=== PATIENT | male | born 1985 | race Caucasian/White ===

== ENCOUNTER 2024-01-08 11:55 | Emergency (ER) | payer OTHER ==
[2024-01-08 12:00] VITALS: TEMP 97.8
[2024-01-08] MEDS: SODIUM CHLORIDE 0.9% 1,000 ML IV STA (12:16)
[2024-01-08 12:22] LABS: Basophils % (A) 1 %; Eosinophils # (A) 0.1 k/uL (0-0.7); Eosinophils % (A) 1 %; HCT 43.7 % (39.0-53.0); HGB 14.8 gm/dL (13.0-17.5); Lymphocytes # (A) 1.6 k/uL (1.0-4.8); Lymphocytes % (A) 24 %; MCH 33.6 pg (25.0-35.0); MCHC 33.8 g/dL (31.0-37.0); MCV 99.2 fL (80.0-100.0); Mean Platelet Volume 8.2; Monocytes # (A) 0.5 k/uL (0-1.0); Monocytes % (A) 8 %; Neutrophils # (A) 4.3 k/uL (1.3-7.7); Neutrophils % (A) 65 %; Platelet Count 202 k/uL (150-450); RDW 14.1 % (11.5-15.5); WBC 6.7 k/uL (3.8-10.6)
[2024-01-08 12:28] LABS: INR 0.9 (<1.2)
[2024-01-08 12:45] LABS: ALT 122 U/L (4-49); AST 136 U/L (17-59); African American GFR (CKD) >90 (>60 ml/min/1.73 sqM); Alkaline Phosphatase 68 U/L (38-126); Anion Gap 9 mmol/L; Blood Urea Nitrogen 8 mg/dL (9-20); Calcium 8.6 mg/dL (8.4-10.2); Carbon Dioxide 28 mmol/L (22-30); Chloride 102 mmol/L (98-107); Glucose 129 mg/dL (74-99); Non-African American GFR(CKD) >90 (>60 ml/min/1.73 sqM); Sodium 139 mmol/L (137-145); Total Bilirubin 0.3 mg/dL (0.2-1.3); Total Protein 6.4 g/dL (6.3-8.2)
--- NOTE | 2024-01-08 12:48 | ED ---
Alcohol HPI - General Chief Complaint: Alcohol Stated Complaint: ETOH/detox Time Seen by Provider: 01/08/24 11:57 Source: patient, EMS, RN notes reviewed Mode of arrival: EMS Limitations: no limitations, altered mental status - History of Present Illness Initial Comments: This is a 38-year-old male who presents to the emergency department for alcohol intoxication. Patient typically consumes a pint of alcohol daily. Most recently had a pint last night. He went to check into [facility] today, however they advised that he was too intoxicated and sent him to the emergency department instead. He has never been to [facility] before, but states that he has been to rehab before. Denies a history of alcohol withdrawal seizures. States that he does get shaky when going through withdrawals. Denies any current complaints and states that he otherwise feels fine. MD Complaint: alcohol intoxication - Related Data Allergies Allergy/AdvReac Type Severity Reaction Status Date / Time No Known Allergies Allergy Verified 01/08/24 11:59 Review of Systems ROS Statement: Those systems with pertinent positive or pertinent negative responses have been documented in the HPI. ROS Other: All systems not noted in ROS Statement are negative. Past Medical History Past Medical History: No Reported History Past Surgical History: No Surgical Hx Reported Smoking Status: Current every day smoker Past Alcohol Use History: Abuse, Daily Past Drug Use History: Marijuana General Exam Limitations: no limitations, altered mental status General appearance: alert, appears intoxicated Head exam: Present: atraumatic, normocephalic, normal inspection Eye exam: Present: normal appearance, PERRL, EOMI. Absent: scleral icterus, conjunctival injection, periorbital swelling Respiratory exam: Present: normal lung sounds bilaterally. Absent: respiratory distress, wheezes, rales, rhonchi, stridor Cardiovascular Exam: Present: regular rate, normal rhythm, normal heart sounds. Absent: systolic murmur, diastolic murmur, rubs, gallop, clicks Neurological exam: Present: alert, oriented X3, CN II-XII intact Psychiatric exam: Present: normal affect, normal mood Skin exam: Present: warm, dry, intact, normal color. Absent: rash Course Vital Signs 01/08/24 01/08/24 11:56 14:50 Temperature 97.8 F Pulse Rate 86 84 Respiratory 18 20 Rate Blood Pressure 128/70 126/71 O2 Sat by Pulse 95 97 Oximetry Medical Decision Making - Medical Decision Making This is a 38-year-old male who presents emergency department for alcohol int oxication. Was pt. sent in by a medical professional or institution? @ -No Did you speak to anyone other than the patient for history? @ -No Did you review nursing and triage notes? @ -Yes, and I agree, it is accurate with regards to the patient's symptoms. Were old charts reviewed? @ -No Differential Diagnosis? @ -Sympathomimetic syndrome, anti-muscarinic syndrome, serotonin syndrome, neuroleptic malignant syndrome, thyrotoxicosis, encephalitis, acute psychosis, hypoglycemia, trauma, sepsis. This is not meant to be an all-inclusive list. EKG interpreted by me (3pts min.)? @ -Not obtained X-rays interpreted by me (1pt min.)? @ -Not obtained CT interpreted by me (1pt min.)? @ -Not obtained U/S interpreted by me (1pt. min.)? @ -Not obtained What testing was considered but not performed? (CT, X-rays, U/S, labs)? Why? @ -None What meds were considered but not given? Why? @ -None Did you discuss the management of the patient with other professionals? @ -No Did you reconcile home meds? @ -No Was smoking cessation discussed for >3mins.? @ -No Was critical care preformed (if so, how long)? @ -No Were there social determinants of health that impacted care today? How? (Homelessness, low income, unemployed, alcoholism, drug addiction, transportation, low edu. Level, literacy, decrease access to med. care, halfway, rehab)? @ -Alcoholism, leading to his visit today. Was there de-escalation of care discussed even if they declined? (Discuss DNR or withdrawal of care, Hospice)? @ -No What co-morbidities impacted this encounter? (DM, HTN, Smoking, COPD, CAD, Cancer, CVA, Hep., AIDS, mental health diagnosis, sleep apnea, morbid obesity)? @ -Alcoholism Was patient admitted / discharged? @ -Discharged. Lab work demonstrates hypokalemia with a potassium of 3.0. Alcohol level elevated at 233. 40 mEq of K-Dur administered along with a liter bolus of IV fluids. Patient was clinically sober despite the alcohol level. He was walking, eating, and ambulating without difficulty. [facility] was contacted and advised that they will take him back at this current level because he is clinically sober. Patient discharged back to [facility] in stable condition. Case discussed with ED attending Dr. Parr. Return precautions reviewed in depth, the patient is instructed to return to the emergency department with any new, worsening, or concerning symptoms. Patient verbalized understanding. Undiagnosed new problem with uncertain prognosis? @ -None Drug Therapy requiring intensive monitoring for toxicity (Heparin, Nitro, Insulin, Cardizem)? @ -None Were any procedures done? @ -None Diagnosis/symptom? @ -Alcohol intoxication, hypokalemia Acute, or Chronic, or Acute on Chronic? @ -Acute Uncomplicated (without systemic symptoms) or Complicated (systemic symptoms)? @ -Uncomplicated Side effects of treatment? @ -None Exacerbation, Progression, or Severe Exacerbation] @ -Not applicable Poses a threat to life or bodily function? @ -Not currently - Lab Data Result diagrams: 01/08/24 12:14 01/08/24 12:14 Lab Results 01/08/24 01/08/24 01/08/24 Range/Units 12:14 12:14 12:14 WBC 6.7 (3.8-10.6) k/uL RBC 4.40 (4.30-5.90) m/uL Hgb 14.8 (13.0-17.5) gm/dL Hct 43.7 (39.0-53.0) % MCV 99.2 (80.0-100.0) fL MCH 33.6 (25.0-35.0) pg MCHC 33.8 (31.0-37.0) g/dL RDW 14.1 (11.5-15.5) % Plt Count 202 (150-450) k/uL MPV 8.2 Neutrophils % 65 % Lymphocytes % 24 % Monocytes % 8 % Eosinophils % 1 % Basophils % 1 % Neutrophils # 4.3 (1.3-7.7) k/uL Lymphocytes # 1.6 (1.0-4.8) k/uL Monocytes # 0.5 (0-1.0) k/uL Eosinophils # 0.1 (0-0.7) k/uL Basophils # 0.0 (0-0.2) k/uL PT 10.0 (10.0-12.5) sec INR 0.9 (<1.2) APTT 23.0 (22.0-30.0) sec Sodium 139 (137-145) mmol/L Potassium 3.0 L (3.5-5.1) mmol/L Chloride 102 (98-107) mmol/L Carbon Dioxide 28 (22-30) mmol/L Anion Gap 9 mmol/L BUN 8 L (9-20) mg/dL Creatinine 0.73 (0.66-1.25) mg/dL Est GFR (CKD-EPI)AfAm >90 (>60 ml/min/1.73 sqM) Est GFR (CKD-EPI)NonAf >90 (>60 ml/min/1.73 sqM) Glucose 129 H (74-99) mg/dL Calcium 8.6 (8.4-10.2) mg/dL Total Bilirubin 0.3 (0.2-1.3) mg/dL AST 136 H (17-59) U/L ALT 122 H (4-49) U/L Alkaline Phosphatase 68 (38-126) U/L Total Protein 6.4 (6.3-8.2) g/dL Albumin 4.0 (3.5-5.0) g/dL Serum Alcohol 233 H* mg/dL Disposition Clinical Impression: Alcoholic intoxication, Hypokalemia Disposition: HOME SELF-CARE Instructions (If sedation given, give patient instructions): Alcohol Intoxication (ED) Additional Instructions: Return to the emergency department with any new, worsening, or concerning sympto ms. Follow up with your primary care provider in 1-2 days. Is patient prescribed a controlled substance at d/c from ED?: No Referrals: None,Stated [Primary Care Provider] - 1-2 days Time of Disposition: 14:15
[2024-01-08 13:02] LABS: Alcohol 233 mg/dL
[2024-01-08] MEDS: POTASSIUM CHLORIDE ER 20 MEQ TAB.ER PO STA (13:45)
[2024-01-08 14:51] VITALS: BP 126/71; PULSE 84; RESP 20
== END 2024-01-08 15:02 | disposition home or self-care (01) ==
LOC: EC 11:55
DX: F10.129 Alcohol abuse with intoxication, unspecified (principal); E87.6 Hypokalemia; F17.200 Nicotine dependence, unspecified, uncomplicated; Y90.7 Blood alcohol level of 200-239 mg/100 ml
CPT/HCPCS: 36415; 80053; 85025; 85610; 85730; 99284; 96360; G0480; 80320

== ENCOUNTER 2024-01-10 19:12 | Observation (INO) | payer OTHER ==
[2024-01-10] MEDS ORDERED: LORazepam 1 MG TAB PO PRN ×3 (19:42)
[2024-01-10] MEDS ORDERED: LORazepam 0.5 MG TAB PO PRN (19:42)
[2024-01-10] MEDS ORDERED: LORazepam 2 MG/ML INJ IV PRN ×3 (19:42)
--- NOTE | 2024-01-10 19:43 | ED ---
Alcohol HPI - General Chief Complaint: Alcohol Stated Complaint: ETOH Time Seen by Provider: 01/10/24 19:15 Source: patient, EMS, RN notes reviewed, old records reviewed Mode of arrival: EMS Limitations: no limitations, altered mental status - History of Present Illness Initial Comments: This is a 38-year-old male to the ER for evaluation. Patient from [facility] for evaluation guarding possible DTs and intoxication. Patient has history of significant alcoholism MD Complaint: alcohol intoxication, alcohol withdrawal, alcohol dependence, desires rehab, medical clearance for detox facility Last Drink: unknown -: minute(s) Previous Visits for Alcohol Intoxication?: Yes Recent Trauma: Yes Associated Symptoms: denies other symptoms Treatments Prior to Arrival: none Chronic Alcohol Use: Yes - Related Data Home Medications Medication Instructions Recorded Confirmed Acetaminophen [Tylenol] 650 mg PO Q4H PRN MDD 2,600mg 01/10/24 01/10/24 Benzocaine 20 % Gel [Orajel] 1 applic MM DAILY PRN 01/10/24 01/10/24 Calcium Phos/D3/Magnesium/Zinc 1 tab PO TID PRN 01/10/24 01/10/24 [Hsrwxlb-Syq-Ctdq-Vitamin D3] Chlorpheniramine Maleate 4 mg PO Q4H PRN 01/10/24 01/10/24 [Chlor-Trimeton] Hyoscyamine Sulfate [Levsin] 0.125 mg PO QID PRN 01/10/24 01/10/24 Ibuprofen [Motrin Ib] 600 mg PO Q6H PRN 01/10/24 01/10/24 LORazepam [Ativan] 1 - 2 mg PO Q4H 01/10/24 01/10/24 Loperamide HCl [Imodium A-D] 4 mg PO QID PRN MDD 16mg 01/10/24 01/10/24 Melatonin 10 mg PO HS 01/10/24 01/10/24 Multivitamins, Thera [Multivitamin 1 tab PO DAILY 01/10/24 01/10/24 (formulary)] Thiamine [Vitamin B-1] 100 mg PO DAILY 01/10/24 01/10/24 ondansetron HCL [Zofran] 8 mg PO Q6H PRN 01/10/24 01/10/24 Previous Rx's Medication Instructions Recorded amLODIPine [Norvasc] 5 mg PO BID #30 tab 01/12/24 Allergies Allergy/AdvReac Type Severity Reaction Status Date / Time Penicillins Allergy Rash/Hives Verified 01/10/24 20:10 Review of Systems ROS Statement: Those systems with pertinent positive or pertinent negative responses have been documented in the HPI. ROS Other: All systems not noted in ROS Statement are negative. Past Medical History Past Medical History: No Reported History History of Any Multi-Drug Resistant Organisms: None Reported Past Surgical History: No Surgical Hx Reported Past Psychological History: No Psychological Hx Reported Smoking Status: Current every day smoker Past Alcohol Use History: Abuse, Daily Past Drug Use History: Marijuana General Exam Limitations: no limitations General appearance: appears intoxicated, anxious Head exam: Present: atraumatic, normocephalic, normal inspection Eye exam: Present: normal appearance, PERRL, EOMI. Absent: scleral icterus, conjunctival injection, periorbital swelling ENT exam: Present: normal exam, mucous membranes moist Neck exam: Present: normal inspection. Absent: tenderness, meningismus, lymphadenopathy Respiratory exam: Present: normal lung sounds bilaterally. Absent: respiratory distress, wheezes, rales, rhonchi, stridor Cardiovascular Exam: Present: regular rate, normal rhythm, normal heart sounds. Absent: systolic murmur, diastolic murmur, rubs, gallop, clicks GI/Abdominal exam: Present: soft, normal bowel sounds. Absent: distended, tenderness, guarding, rebound, rigid Extremities exam: Present: normal inspection, full ROM, normal capillary refill. Absent: tenderness, pedal edema, joint swelling, calf tenderness Back exam: Present: normal inspection Neurological exam: Present: alert, oriented X3, CN II-XII intact Psychiatric exam: Present: normal affect, normal mood Skin exam: Present: warm, dry, intact, normal color. Absent: rash Course Vital Signs 01/10/24 01/10/24 19:14 20:23 Temperature 98.5 F Pulse Rate 67 48 L Respiratory 16 18 Rate Blood Pressure 140/97 136/89 O2 Sat by Pulse 97 97 Oximetry - Reevaluation(s) Reevaluation #1: 01/10/24 20:29 Medical records reviewed Reevaluation #2: 01/10/24 20:29 Patient showing mild improvement here in the ER Reevaluation #3: 01/10/24 20:29 Patient informed of results questions answered Reevaluation #4: Was pt. sent in by a medical professional or institution (SHIVA Dietz, INTERNATIONAL RECRUITER, urgent care, hospital, or prison...) When possible be specific @ -no Did you speak to anyone other than the patient for history (EMS, parent, family, police, friend...)? What history was obtained from this source @ -no Did you review nursing and triage notes (agree or disagree)? Why? @ -agree Are old charts reviewed (outside hosp., previous admission, EMS record, old EKG, old radiological studies, urgent care reports/EKG's, prison records)? Report findings @ -yes Differential Diagnosis (chest pain, altered mental status, abdominal pain women, abdominal pain men, vaginal bleeding, weakness, fever, dyspnea, syncope, headache, dizziness, GI bleed, back pain, seizure, CVA, palpatations, mental health, musculoskeletal)? @ -prior EKG interpreted by me (3pts min.). @ -no X-rays interpreted by me (1pt min.). @ -no CT interpreted by me (1pt min.). @ -no U/S interpreted by me (1pt. min.). @ -no What testing was considered but not performed or refused? (CT, X-rays, U/S, labs)? Why? @ -none What meds were considered but not given or refused? Why? @ -none Did you discuss the management of the patient with other professionals (professionals i.e. SHIVA Dietz, INTERNATIONAL RECRUITER, lab, RT, psych nurse, social service assistant, mine car repairer, teacher, legal compliance officer, case supervisor)? Give summary @ -no Was smoking cessation discussed for >3mins.? @ -no Was critical care preformed (if so, how long)? @ -no Were there social determinants of health that impacted care today? How? (Homelessness, low income, unemployed, alcoholism, drug addiction, transportation, low edu. Level, literacy, decrease access to med. care, long term, rehab)? @ -none Was there de-escalation of care discussed even if they declined (Discuss DNR or withdrawal of care, Hospice)? DNR status @ -no What co-morbidities impacted this encounter? (DM, HTN, Smoking, COPD, CAD, Cancer, CVA, ARF, Chemo, Hep., AIDS, mental health diagnosis, sleep apnea, morbid obesity)? @ -none Was patient admitted / discharged? Hospital course, mention meds given and route, prescriptions, significant lab abnormalities, going to OR and other pertinent info. @ - 38 male for alcohol alcohol withdrawal alcohol impending DTs. Patient admitted for observation Admitted Undiagnosed new problem with uncertain prognosis? @ -no Drug Therapy requiring intensive monitoring for toxicity (Heparin, Nitro, Insulin, Cardizem)? @ -no Were any procedures done? @ -no Diagnosis/symptom? @ -Alcohol intoxication DTs Acute, or Chronic, or Acute on Chronic? @ -Acute Uncomplicated (without systemic symptoms) or Complicated (systemic symptoms)? @ -Complicated Side effects of treatment? @ -no Exacerbation, Progression, or Severe Exacerbation? @ -exacerbation Poses a threat to life or bodily function? How? (Chest pain, [place], [place], pneumonia, PE, COPD, DKA, ARF, appy, cholecystitis, CVA, Diverticulitis, Homicidal, Suicidal, threat to staff... and all critical care pts) @ -yes significant withdrawal 01/16/24 21:18 Reevaluation #5: Differential Altered Mental Status: Hypoglycemia, DKA, hypercapnia, ETOH, overdose, CO poisoning, trauma, myxedema coma, HTN encephalopathy, infection, encephalitis, psychosis, intercranial hemorrhage, hepatic encephalopathy, meningitis, CVA, this is not meant to be an all-inclusive list - Consultations Consultation #1: Spoke with [facility] who agrees to admit the patient Medical Decision Making - Medical Decision Making 38 male for alcohol alcohol withdrawal alcohol impending DTs. Patient admitted for observation - Lab Data Result diagrams: 01/12/24 02:59 01/12/24 02:59 Lab Results 01/10/24 01/10/24 Range/Units 19:42 19:42 WBC 6.5 (3.8-10.6) k/uL RBC 4.62 (4.30-5.90) m/uL Hgb 15.7 (13.0-17.5) gm/dL Hct 46.7 (39.0-53.0) % MCV 101.1 H (80.0-100.0) fL MCH 33.9 (25.0-35.0) pg MCHC 33.6 (31.0-37.0) g/dL RDW 13.2 (11.5-15.5) % Plt Count 228 (150-450) k/uL MPV 8.0 Neutrophils % 64 % Lymphocytes % 23 % Monocytes % 9 % Eosinophils % 2 % Basophils % 1 % Neutrophils # 4.2 (1.3-7.7) k/uL Lymphocytes # 1.5 (1.0-4.8) k/uL Monocytes # 0.6 (0-1.0) k/uL Eosinophils # 0.1 (0-0.7) k/uL Basophils # 0.0 (0-0.2) k/uL Macrocytosis Slight Sodium 136 L (137-145) mmol/L Potassium 3.9 (3.5-5.1) mmol/L Chloride 105 (98-107) mmol/L Carbon Dioxide 26 (22-30) mmol/L Anion Gap 5 mmol/L BUN 3 L (9-20) mg/dL Creatinine 0.69 (0.66-1.25) mg/dL Est GFR (CKD-EPI)AfAm >90 (>60 ml/min/1.73 sqM) Est GFR (CKD-EPI)NonAf >90 (>60 ml/min/1.73 sqM) Glucose 82 (74-99) mg/dL Calcium 9.5 (8.4-10.2) mg/dL Phosphorus 3.5 (2.4-5.1) Magnesium 2.2 (1.6-2.3) mg/dL Total Bilirubin 1.0 (0.2-1.3) mg/dL AST 65 H (17-59) U/L ALT 91 H (4-49) U/L Alkaline Phosphatase 68 (38-126) U/L Total Protein 6.8 (6.3-8.2) g/dL Albumin 4.3 (3.5-5.0) g/dL Lipase 182 (23-300) U/L Serum Alcohol <10 mg/dL Disposition Clinical Impression: Alcoholic intoxication, Alcohol withdrawal delirium, Alcohol withdrawal syndrome Disposition: ADMITTED IP TO THIS HOSP Condition: Fair Is patient prescribed a controlled substance at d/c from ED?: No Time of Disposition: 20:30
[2024-01-10] MEDS: SODIUM CHLORIDE 0.9% 1,000 ML IV STA (19:48)
[2024-01-10] MEDS: LORazepam 2 MG/ML INJ IV STA (19:51)
[2024-01-10 20:12] LABS: Basophils % (A) 1 %; Eosinophils # (A) 0.1 k/uL (0-0.7); Eosinophils % (A) 2 %; HCT 46.7 % (39.0-53.0); HGB 15.7 gm/dL (13.0-17.5); Lymphocytes # (A) 1.5 k/uL (1.0-4.8); Lymphocytes % (A) 23 %; MCH 33.9 pg (25.0-35.0); MCHC 33.6 g/dL (31.0-37.0); MCV 101.1 fL (80.0-100.0); Macrocytosis Slight; Monocytes # (A) 0.6 k/uL (0-1.0); Monocytes % (A) 9 %; Neutrophils # (A) 4.2 k/uL (1.3-7.7); Neutrophils % (A) 64 %; Platelet Count 228 k/uL (150-450); RBC 4.62 m/uL (4.30-5.90); RDW 13.2 % (11.5-15.5); WBC 6.5 k/uL (3.8-10.6)
[2024-01-10 20:26] LABS: ALT 91 U/L (4-49); AST 65 U/L (17-59); African American GFR (CKD) >90 (>60 ml/min/1.73 sqM); Albumin 4.3 g/dL (3.5-5.0); Alcohol <10 mg/dL; Alkaline Phosphatase 68 U/L (38-126); Anion Gap 5 mmol/L; Blood Urea Nitrogen 3 mg/dL (9-20); Calcium 9.5 mg/dL (8.4-10.2); Carbon Dioxide 26 mmol/L (22-30); Chloride 105 mmol/L (98-107); Glucose 82 mg/dL (74-99); Lipase 182 U/L (23-300); Magnesium 2.2 mg/dL (1.6-2.3); Non-African American GFR(CKD) >90 (>60 ml/min/1.73 sqM); Potassium 3.9 mmol/L (3.5-5.1); Sodium 136 mmol/L (137-145); Total Protein 6.8 g/dL (6.3-8.2)
[2024-01-10] MEDS ORDERED: ONDANSETRON 4 MG/2 ML VIAL IVP PRN (20:27)
[2024-01-10] MEDS ORDERED: NALOXONE 0.4 MG/ML 1 ML VIAL IV PRN (20:27)
[2024-01-10] MEDS ORDERED: MORPHINE SULFATE 4 MG/ML SYRINGE IV PRN (20:27)
[2024-01-10] MEDS: SODIUM CHLORIDE 0.9% 1,000 ML IV SCH (21:39)
[2024-01-11] MEDS: PANTOPRAZOLE 40 MG/10 ML VIAL IV SCH (08:20)
[2024-01-11] MEDS: MULTIVITAMINS, THERA 1 EACH TAB PO SCH (08:20)
[2024-01-11] MEDS: FOLIC ACID 1 MG TAB PO SCH (08:20)
[2024-01-11 09:04] LABS: Basophils # (A) 0.08 X 10*3/uL (0.00-0.10); Basophils % (A) 1.3 %; Eosinophils % (A) 3.2 %; HCT 44.1 % (39.6-50.0); HGB 14.6 g/dL (13.0-17.0); Lymphocytes # (A) 1.74 X 10*3/uL (0.90-5.00); Lymphocytes % (A) 27.7 %; MCH 33.6 pg (27.0-32.0); MCHC 33.1 g/dL (32.0-37.0); MCV 101.4 FL (80.0-97.0); Mean Platelet Volume 11.1 FL (9.5-12.2); Monocytes # (A) 0.83 X 10*3/uL (0.20-1.00); Monocytes % (A) 13.2 %; NRBC Per 100 WBC 0 X 10*3/uL (0.00-0.01); Neutrophils # (A) 3.41 X 10*3/uL (1.80-7.70); Neutrophils % (A) 54.3 %; Platelet Count 201 X 10*3/uL (140-440); RBC 4.35 X 10*6/uL (4.40-5.60); RDW 13.4 % (11.5-14.5); WBC 6.28 X 10*3/uL (4.50-10.00)
[2024-01-11 09:20] LABS: ALT 78 U/L (10-49); AST 50 U/L (14-35); Albumin 3.9 g/dL (3.8-4.9); Albumin/Globulin Ratio 2.17 Ratio (1.60-3.17); Alkaline Phosphatase 69 U/L (41-126); BUN/Creat Ratio 5.14 Ratio (12.00-20.00); Blood Urea Nitrogen 3.6 mg/dL (9.0-27.0); Calcium 8.8 mg/dL (8.7-10.3); Carbon Dioxide 22.7 mmol/L (21.6-31.8); Chloride 105 mmol/L (96-109); Globulin 1.8 g/dL (1.6-3.3); Glucose 85 mg/dL (70-110); Magnesium 2.1 mg/dL (1.5-2.4); Phosphorus 3.7 mg/dL (2.4-5.1); Potassium 3.7 mmol/L (3.5-5.5); Sodium 140 mmol/L (135-145); Total Bilirubin 0.6 mg/dL (0.3-1.2); Total Protein 5.7 g/dL (6.2-8.2)
[2024-01-11] MEDS: THIAMINE 100 MG TAB PO SCH (12:24)
[2024-01-11] MEDS: HEPARIN SODIUM,PORCINE 5,000 UNIT/ML 1 ML VIAL SQ SCH (16:10)
--- NOTE | 2024-01-12 | P.HPIM ---
History of Present Illness H&P Date: 01/11/24 Chief Complaint: Alcohol withdrawal symptoms Patient is a 38-year-old male with a past medical history of daily alcohol use, marijuana use and currently everyday smoker was sent from [facility] facility for evaluation of alcohol withdrawal symptoms and DTs. Patient states that his last drink was 5 days ago and has been anxious and shaky. He went to [facility] for rehab. Otherwise denied any complaints of chest pain or shortness of breath. No nausea vomiting abdominal pain or diarrhea. No cough or sputum production. Patient has been afebrile. Laboratory data showed WBC 6.28 hemoglobin 14.6 MCV 101.4 and platelets 201 sodium 140 potassium 3.7 chloride 105 BUN 3.6 and creatinine 0.7 and blood sugar 85 AST 65 ALT 91 and alk phos 68 and lipase level 182 and serum alcohol is less than 10 Review of Systems Constitutional: Patient denies any fever or chills . No generalized weakness or weight loss. Abdomen: Patient denied nausea vomiting and diarrhea and abdominal pain. Cardiovascular: Patient denies any chest pain or short of breath no palpitations. Respiratory: patient denied any cough or sputum production. No shortness of breath Neurologic: Patient denied any numbness or tingling. no headache. Complete review of systems could not be obtained from the patient. Past Medical History Past Medical History: No Reported History History of Any Multi-Drug Resistant Organisms: None Reported Past Surgical History: No Surgical Hx Reported Past Psychological History: No Psychological Hx Reported Smoking Status: Current every day smoker Past Alcohol Use History: Abuse, Daily Past Drug Use History: Marijuana Medications and Allergies Home Medications Medication Instructions Recorded Confirmed Type Acetaminophen [Tylenol] 650 mg PO Q4H PRN MDD 2,600mg 01/10/24 01/10/24 History Benzocaine 20 % Gel [Orajel] 1 applic MM DAILY PRN 01/10/24 01/10/24 History Calcium Phos/D3/Magnesium/Zinc 1 tab PO TID PRN 01/10/24 01/10/24 History [Rpqcbkq-Ist-Agde-Vitamin D3] Chlorpheniramine Maleate 4 mg PO Q4H PRN 01/10/24 01/10/24 History [Chlor-Trimeton] Hyoscyamine Sulfate [Levsin] 0.125 mg PO QID PRN 01/10/24 01/10/24 History Ibuprofen [Motrin Ib] 600 mg PO Q6H PRN 01/10/24 01/10/24 History LORazepam [Ativan] 1 - 2 mg PO Q4H 01/10/24 01/10/24 History Loperamide HCl [Imodium A-D] 4 mg PO QID PRN MDD 16mg 01/10/24 01/10/24 History Melatonin 10 mg PO HS 01/10/24 01/10/24 History Multivitamins, Thera [Multivitamin 1 tab PO DAILY 01/10/24 01/10/24 History (formulary)] Thiamine [Vitamin B-1] 100 mg PO DAILY 01/10/24 01/10/24 History cloNIDine HCL [Catapres] 0.1 - 0.3 mg PO Q4H PRN 01/10/24 01/10/24 History ondansetron HCL [Zofran] 8 mg PO Q6H PRN 01/10/24 01/10/24 History Allergies Allergy/AdvReac Type Severity Reaction Status Date / Time Penicillins Allergy Rash/Hives Verified 01/10/24 20:10 Physical Exam Vitals: Vital Signs Temp Pulse Pulse Resp BP BP Pulse Ox 01/11/24 07:00 97.4 F L 59 L 18 156/83 99 01/11/24 02:00 98.8 F 75 18 155/88 99 01/11/24 00:10 58 L 01/10/24 22:38 98.8 F 42 L 17 139/89 99 01/10/24 21:50 98.5 F 49 L 16 145/89 97 01/10/24 20:23 48 L 18 136/89 97 01/10/24 19:14 98.5 F 67 16 140/97 97 Intake and Output 01/10/24 01/11/24 01/11/24 22:59 06:59 14:59 Intake Total 1170 100 Output Total 350 Balance 820 100 Intake: Intake, IV Titration 1170 Amount Sodium Chloride 0.9% 1, 1170 000 ml @ 130 mls/hr IV . Q7H42M [facility] Rx#:[id number] Oral 100 Output: Urine 350 Other: # Voids 1 Weight 68.039 kg PHYSICAL EXAMINATION: Patient is lying in the bed c,, no acute distress, awake alert and oriented but anxious and shaky.. HEENT: Normocephalic. Neck is supple. Pupils reactive. Nostrils clear. Oral cavity is moist. Neck reveals no JVD, carotid bruits, or thyromegaly. CHEST EXAMINATION: Trachea is central. Symmetrical expansion. Lung rene clear to auscultation and percussion. CARDIAC: Normal S1, S2 with no gallops. No murmurs ABDOMEN: Soft. Bowel sounds normal. No organomegaly. No abdominal bruits. Extremities: reveal no edema. No clubbing or cyanosis Neurologically awake, alert, oriented x3 with well-coordinated movements. No gross focal deficits noted Skin: No rash or skin lesions. Psychiatric: Coperative., Anxious. Nonsuicidal Musculoskeletal: No joint swelling or deformity. Normal range of motion. Results CBC & Chem 7: 01/11/24 02:38 01/11/24 02:38 Labs: Abnormal Lab Results - Last 24 Hours (Table) 01/10/24 01/10/24 01/11/24 Range/Units 19:42 19:42 02:38 RBC 4.35 L (4.40-5.60) X 10*6/uL MCV 101.1 H 101.4 H (80.0-100.0) fL MCH 33.6 H (27.0-32.0) pg Sodium 136 L (137-145) mmol/L BUN 3 L (9-20) mg/dL BUN/Creatinine Ratio (12.00-20.00) Ratio AST 65 H (17-59) U/L ALT 91 H (4-49) U/L Total Protein (6.2-8.2) g/dL 01/11/24 Range/Units 02:38 RBC (4.40-5.60) X 10*6/uL MCV (80.0-100.0) fL MCH (27.0-32.0) pg Sodium (137-145) mmol/L BUN 3.6 L (9-20) mg/dL BUN/Creatinine Ratio 5.14 L (12.00-20.00) Ratio AST 50 H (17-59) U/L ALT 78 H (4-49) U/L Total Protein 5.7 L (6.2-8.2) g/dL Thrombosis Risk Factor Assmnt - DVT/VTE Prophylaxis DVT/VTE Prophylaxis: Pharmacologic Prophylaxis ordered Assessment and Plan Assessment: Acute alcohol withdrawal symptoms and possible DTs Bradycardia with symptomatic Macrocytosis likely due to alcohol abuse Alcohol use disorder patient does drink on daily basis Marijuana use and cigarette smoking DVT prophylaxis and GI prophylaxis with heparin subcu PPI Plan: Patient will be continued on IV hydration with normal saline. Continue with thiamine and folic acid and encourage oral intake. Catapres is on hold due to bradycardia. Patient will be started on Norvasc 2.5 mg daily and continue to monitor blood pressure and titrate medications.. Continue pain management and CIWA protocol. Follow-up closely. Time with Patient: Greater than 30
[2024-01-12] MEDS: amLODIPine 2.5 MG TAB PO SCH (00:52)
[2024-01-12 07:37] VITALS: BP 144/82; PULSE 79; RESP 16; TEMP 98.1
[2024-01-12 08:55] LABS: Basophils # (A) 0.06 X 10*3/uL (0.00-0.10); Basophils % (A) 0.9 %; Eosinophils # (A) 0.19 X 10*3/uL (0.04-0.35); Eosinophils % (A) 2.8 %; HCT 43.1 % (39.6-50.0); HGB 14.6 g/dL (13.0-17.0); Lymphocytes % (A) 25.2 %; MCHC 33.9 g/dL (32.0-37.0); MCV 100.2 FL (80.0-97.0); Monocytes # (A) 0.82 X 10*3/uL (0.20-1.00); Monocytes % (A) 12.1 %; NRBC Per 100 WBC 0 X 10*3/uL (0.00-0.01); Neutrophils # (A) 3.97 X 10*3/uL (1.80-7.70); Neutrophils % (A) 58.9 %; Platelet Count 234 X 10*3/uL (140-440); RDW 13.3 % (11.5-14.5); WBC 6.75 X 10*3/uL (4.50-10.00)
[2024-01-12 09:07] LABS: ALT 67 U/L (10-49); AST 37 U/L (14-35); Albumin 3.9 g/dL (3.8-4.9); Albumin/Globulin Ratio 1.77 Ratio (1.60-3.17); Alkaline Phosphatase 69 U/L (41-126); BUN/Creat Ratio 6.29 Ratio (12.00-20.00); Blood Urea Nitrogen 4.4 mg/dL (9.0-27.0); Carbon Dioxide 22.9 mmol/L (21.6-31.8); Chloride 103 mmol/L (96-109); Globulin 2.2 g/dL (1.6-3.3); Glucose 86 mg/dL (70-110); Potassium 4.1 mmol/L (3.5-5.5); Sodium 139 mmol/L (135-145); Total Bilirubin 0.6 mg/dL (0.3-1.2); Total Protein 6.1 g/dL (6.2-8.2)
[2024-01-13 11:38] LABS: Phosphorus 3.5 (2.4-5.1)
== END 2024-01-12 13:30 | disposition home or self-care (01) ==
LOC: EC 19:12 → 6NMEDSUR 20:29
PROVIDERS: ADMIT Hospitalist; ATTEND Hospitalist
DX: F10.239 Alcohol dependence with withdrawal, unspecified (principal); R00.1 Bradycardia, unspecified; F17.210 Nicotine dependence, cigarettes, uncomplicated; D75.89 Other specified diseases of blood and blood-forming organs
CPT/HCPCS: 96376; 96372 ×2; 96375; 96361; 96374; 99284; 36415; 80053 ×3; 83690; 83735 ×2; 84100 ×2; 85025 ×3; G0378 ×3; G0480; J2060; J1644 ×2; J2470 ×2; 80320